=== PATIENT | female | born 1960 | race Caucasian/White ===

== ENCOUNTER 2017-09-12 06:53 | Day surgery (SDC) | payer OTHER ==
[~2017-09-12] VITALS: Ht 157.5 cm; Wt 84.8 kg
[2017-09-12 07:21] VITALS: BP 154/77
[2017-09-12 10:44] VITALS: BP 154/76
== END 2017-09-12 11:00 | disposition home or self-care (01) ==
LOC: GI 06:53 → OR 09:30 → GI 10:30
PROVIDERS: Internal Medicine
PROC: 0DJD8ZZ Inspection of Lower Intestinal Tract, Via Natural or Artificial Opening Endoscopic (ICD-10-PCS; principal; 2017-09-12 09:30)
DX: Z12.11 Encounter for screening for malignant neoplasm of colon (principal); I48.91 Unspecified atrial fibrillation; K57.30 Diverticulosis of large intestine without perforation or abscess without bleeding; Z80.0 Family history of malignant neoplasm of digestive organs; Z68.33 Body mass index [BMI] 33.0-33.9, adult
CPT/HCPCS: 45378; J1200; J1610; J2250; J2310; J3010; J3490

== ENCOUNTER 2019-08-15 09:40 | Emergency (ER) | payer OTHER ==
[~2019-08-15] VITALS: Ht 157.5 cm; Wt 84.8 kg
[~2019-08-15 09:40] MED LIST: APLICARE ANTIS118 M3 TOP; BACO TOP; LEVOTHYROXIN0.025 M2 PO; NATURE'S BLEND500 M3 PO; PRADAXA150 M1 PO; PRAVASTATIN SOD20 M1 PO; SOTALOL HCL80 MG PO
[2019-08-15 09:48] VITALS: BP 139/58; Ht 157.5 cm; Wt 84.8 kg
== END 2019-08-15 12:10 | disposition home or self-care (01) ==
LOC: ED 09:40
DX: S93.402A Sprain of unspecified ligament of left ankle, initial encounter (principal); I10 Essential (primary) hypertension; E11.9 Type 2 diabetes mellitus without complications; E78.00 Pure hypercholesterolemia, unspecified; Z90.711 Acquired absence of uterus with remaining cervical stump; Z86.73 Personal history of transient ischemic attack (TIA), and cerebral infarction without residual deficits; Z88.0 Allergy status to penicillin; Z88.5 Allergy status to narcotic agent; W18.39XA Other fall on same level, initial encounter; Y93.89 Activity, other specified; Y92.89 Other specified places as the place of occurrence of the external cause; Y99.8 Other external cause status

== ENCOUNTER 2020-10-08 14:23 | Emergency (ER) | payer OTHER ==
[~2020-10-08] VITALS: Ht 154.9 cm; Wt 77.6 kg
[2020-10-08 14:39] VITALS: Ht 154.9 cm; Wt 77.6 kg
[2020-10-08 16:26] VITALS: BP 105/74
== END 2020-10-08 16:26 | disposition home or self-care (01) ==
LOC: ED 14:23
DX: I10 Essential (primary) hypertension (principal); E11.9 Type 2 diabetes mellitus without complications; E78.00 Pure hypercholesterolemia, unspecified; Z90.711 Acquired absence of uterus with remaining cervical stump; Z76.0 Encounter for issue of repeat prescription; Z88.5 Allergy status to narcotic agent; Z95.0 Presence of cardiac pacemaker